=== PATIENT | female | born 1990 | race Caucasian/White ===

== ENCOUNTER 2025-03-26 23:34 | Emergency (ER) | payer SELFPAY ==
[~2025-03-26] VITALS: Ht 157.5 cm; Wt 82.0 kg
[2025-03-26 23:41] VITALS: BP 114/78; PULSE 84; RESP 18; TEMP 37.2; O2SAT 99
[2025-03-27] MEDS ORDERED: FAMOTIDINE 20MG/2ML VIAL IV STA (00:39)
[2025-03-27 01:09] LABS: HEMATOCRIT. 36.1 % (36.0-48.0); HEMOGLOBIN. 12.4 g/dL (12.0-16.0); MEAN CORPUSCULAR HEMOGLOBIN 31.2 pg (28.0-32.0); MEAN CORPUSCULAR HGB CONC 34.3 g/dL (31.0-37.0); MEAN CORPUSCULAR VOLUME 90.8 fL (81.0-99.0); MEAN PLATELET VOLUME 7.8 fl (7.4-10.4); PLATELET 270 x1000/uL (130-400); RED BLOOD CELL COUNT 3.98 mill/uL (4.2-5.4)
[2025-03-27 01:13] LABS: CHLORIDE 108 mEq/L (98-107); POTASSIUM 3.4 mEq/L (3.5-5.1); SODIUM 143 mEq/L (136-145)
[2025-03-27 01:14] LABS: CALCIUM 8.4 mg/dL (8.7-10.4); CARBON DIOXIDE 23 mEq/L (21-32)
[2025-03-27] MEDS: SODIUM CHLORIDE 0.9% 1,000 ML IV ONE (01:15)
[2025-03-27] MEDS: ONDANSETRON HCL 4MG/2ML INJ IV STA (01:15)
[2025-03-27] MEDS: FAMOTIDINE 20MG/2ML VIAL IV NR (01:16)
[2025-03-27 01:19] LABS: CREATININE 0.6 mg/dL (0.6-1.0); GLUCOSE 122 mg/dL (70-105)
[2025-03-27 01:20] LABS: ETHANOL BLOOD 157 mg/dL (<10); UREA NITROGEN BLOOD 10 mg/dL (9-23)
[2025-03-27 01:21] LABS: ALANINE AMINOTRANSFERASE 31 IU/L (10-49); ALBUMIN 4.2 g/dL (3.2-4.8); ASPARTATE AMINOTRANSFERASE 20 IU/L (<34)
[2025-03-27 01:22] LABS: BILIRUBIN DIRECT < 0.1 mg/dL (<=3.0); BILIRUBIN TOTAL 0.2 mg/dL (0.1-1.0); PROTEIN TOTAL 6.7 g/dL (6.0-8.3)
[2025-03-27 01:25] LABS: DIFFERENTIAL COMMENT 1
[2025-03-27 05:18] LABS: PLATELET ESTIMATE NORMAL
== END 2025-03-27 03:12 | disposition home or self-care (01) ==
LOC: ER 23:34
DX: T51.0X1A Toxic effect of ethanol, accidental (unintentional), initial encounter (principal); R11.2 Nausea with vomiting, unspecified; J45.909 Unspecified asthma, uncomplicated; Y92.89 Other specified places as the place of occurrence of the external cause
CPT/HCPCS: 99283; 80076; 80048; 80320; 83690; 85025; 36415; 96361; 96374; J1308; J2405; J7030; G0480